=== PATIENT | female | born 1945 | race Caucasian/White ===

== ENCOUNTER 2019-10-16 15:13 | Outpatient (CLI) | payer MEDICARE, OTHER, SELFPAY ==
--- NOTE | ~2019-10-16 | CT_ITS ---
EXAMINATION: CT soft tissue neck wo con DATE: 10/16/2019 15:43 INDICATION: Cervicalgia TECHNIQUE: Computed tomography (CT) of the soft tissues of the neck was performed without intravenous contrast. Automated exposure control and iterative reconstruction technique were employed. The dose- length product was 463.71 mGy-cm. COMPARISON: None FINDINGS: Normal age-related changes in the visualized brain including mild volume loss and mild scattered germaine ventricular predominant white matter hypoattenuation consistent with chronic small vessel ischemic di sease. Changes of bilateral intraocular lens replacement. Mastoid air cells, middle ear cavities and paranasal sinuses are clear. There is a large periapical erosion between the roots of the second most posterior left maxillary molar where there appears to been a prior root canal. Bilateral parotid and submandibular glands are normal. Bilateral low-attenuation thyroid nodules the largest on the right measuring 1.5 cm in maximal diameter which was biopsied on 01/01/2011. Minimal atherosclerotic calcifi cations at the bilateral carotid bulbs. Relatively symmetric bilateral normal sized cervical lymph no faby. Tiny calcified nodule at the apical segment of the right lower lobe along with calcified mediast inal lymph nodes consistent with old granulomatous disease. There is suggestion of possible mild emph ysema in the upper lungs are evaluation of fine pulmonary parenchymal detail is limited by respirator y motion. Mild cervical dextrocurvature. There is likely developmental anterior and posterior fusion at C2-C3. 2 mm anterolisthesis C3 on C4. Vertebral body heights are normal. Mild disc height loss at C4-C5, C5- C6, T3-T4 and T4-T5. There are large anterior osteophytes and heterotopic ossification along the ante rior spine from C4 through T1 consistent with diffuse idiopathic skeletal hyperostosis (DISH). The f ollowing disc levels are specifically discussed: C3-C4: Disc is mildly bulging. There is mild bilateral uncovertebral joint osteoarthritis. There is m oderate right and severe left facet joint osteoarthritis. There is mild right and moderate left neura l foraminal stenosis. There is mild central canal stenosis. C4-C5: Large eccentric to the left partially calcified disc extrusion. There is mild right and modera te left uncovertebral joint osteoarthritis. There is moderate right and severe left facet joint osteo arthritis. There is old right and moderate left neural foraminal stenosis. There is moderate central canal stenosis. C5-C6: Disc is bulging. There is moderate right and mild left uncovertebral joint osteoarthritis. The re is mild right and moderate left facet joint osteoarthritis. There is mild to moderate left and mod erate right neural foraminal stenosis. There is mild central canal stenosis. C6-C7: Disc is bulging. There is mild right and moderate left uncovertebral joint osteoarthritis. The re is mild bilateral facet joint osteoarthritis. There is mild right and mild to moderate left neural foraminal stenosis. There is mild central canal stenosis. C7-T1: Disc is mildly bulging. There is mild bilateral uncovertebral joint osteoarthritis. There is m ild right and moderate left facet joint osteoarthritis. There is minimal bilateral neural foraminal s tenosis. There is no central canal stenosis. IMPRESSION: 1. Moderate cervical spondylosis with bulky anterior osteophytes and heterotopic ossification likely related to diffuse idiopathic skeletal hyperostosis (DISH). 2. Multinodular goiter. Reviewed, dictated and finalized at location A. R FULFILLMENT SPECIALIST IMPRESSION: 1. Moderate cervical spondylosis with bulky anterior osteophytes and heterotopi c ossification likely related to diffuse idiopathic skeletal hyperostosis (DI
== END 2019-10-16 15:14 | disposition home or self-care (01) ==
DX: E04.2 Nontoxic multinodular goiter (principal); M47.892 Other spondylosis, cervical region
CPT/HCPCS: 70490

== ENCOUNTER 2021-05-20 21:07 | Emergency (ER) | payer MEDICARE, OTHER, SELFPAY ==
[2021-05-20] VITALS (12 sets, daily range): BP systolic 71–90; BP diastolic 44–59; PULSE 95–118; RESP 15–24; TEMP 36.9; O2SAT 95–100
--- NOTE | ~2021-05-20 | CT_ITS ---
EXAMINATION: CT abdomen pelvis wo con DATE: 05/20/2021 23:11 INDICATION: Epigastric pain TECHNIQUE: Computed tomography (CT) of the abdomen and pelvis was performed without intravenous contr ast. The dose-length product was 1039.83 mGy-cm. Automated exposure control and iterative reconstruct ion technique were employed. COMPARISON: No prior studies for comparison. FINDINGS: Bibasilar dependent atelectasis. There is emphysema. Heart size normal. Small pericardial e ffusion. No significant pleural effusion. There is a large heterogeneous mass in the left hepatic lobe measuring 9.3 x 8.5 cm. There is biliary dilatation. There is a 9 mm dense focus at the confluence of the biliary tree with associated dilate d bile ducts. Common duct measures 2.3 cm. Gallbladder not definitely visualized. There is splenomega ly. There is thickening of the adrenal glands without discrete mass. There is fatty atrophy of the pa ncreas. There are low-density lesions in the right kidney measuring up to 2 cm, compatible with cysts . Nonobstructive bowel gas pattern. Small amount of gas in the bladder lumen, likely from recent inst rumentation. No lymphadenopathy. No significant vascular abnormality. Moderate degenerative changes o f the hips. There is multilevel spine ectomy changes of the upper lumbar spine. Advanced lumbar spond ylosis. IMPRESSION: 1. Large left hepatic lobe mass, suspicious for malignancy. Recommend further evaluation with contras t-enhanced CT scan. Hyperdense focus in the bile ducts with biliary dilatation, suspicious for stone. 2: Splenomegaly. Reviewed, dictated and finalized at location A. IMPRESSION: 1. Large left hepatic lobe mass, suspicious for malignancy. Recommend further e valuation with contrast-enhanced CT scan. Hyperdense focus in the bile ducts wi th biliary dilatation, suspicious for stone. 2: Splenomegaly.
--- NOTE | ~2021-05-20 | XR_ITS ---
XR chest 2V 05/20/2021 21:39 Indication: Weakness. Confusion. Procedure: AP and lateral views of the chest Comparison: 05/08/2022 Findings: Heart size normal. No focal air space disease, pulmonary edema, pleural effusion or suspect ed pneumothorax. There is mild osteoarthritis of the shoulders. Impression: 1: No acute cardiopulmonary disease. Reviewed, dictated and finalized at location A. Impression: 1: No acute cardiopulmonary disease.
--- NOTE | 2021-05-20 21:10 | ECG_ITS ---
Measurements Intervals [place] Rate: 120 P: GA: 0 QRS: 30 QRSD: 92 T: 37 QT: 304 QTc: 431 Interpretive Statements ATRIAL FIBRILLATION WITH RAPID VENTRICULAR RESPONSE DELAYED PRECORDIAL R/S TRANSITION BASELINE ARTIFACT- I, III, AVL, V4-V6 ABNORMAL ECG Electronically Signed On 05-22-2021 15:48:01 CDT by Viet Gasca D.O.
[2021-05-20] MEDS: SODIUM CHLORIDE 0.9% IV 2,000 ML 999 ML (21:46)
[2021-05-20 22:12] LABS: Basophils Absolute Auto 0.1 K/mm3 (0.0-0.1); Basophils Percent Auto 0.2 % (0.2-1.2); Eosinophils Absolute Auto 0.3 K/mm3 (0-0.3); Eosinophils Percent Auto 1.3 % (0-4.4); Hematocrit 23.1 % (37.0-47.0); Hemoglobin 7.6 g/dL (12.0-15.0); Immature Granulocyte Absolute 0.24 K/mm3 (0.00-0.031); Immature Granulocyte Percent A 1.1 % (0-0.5); Lymphocytes Absolute Auto 0.63 K/mm3 (0.9-3.2); Lymphocytes Percent Auto 2.8 % (18.3-44.2); Mean Corpuscular HGB Conc 32.9 g/dl (32-36); Mean Corpuscular Hemoglobin 30.3 pg (26-34); Mean Platelet Volume 10.4 fl (7.4-10.4); Monocytes Absolute Auto 0.9 K/mm3 (0.1-0.6); Monocytes Percent Auto 4.1 % (2.6-8.5); Neutrophils Absolute Auto 20.1 K/mm3 (1.3-6.7); Neutrophils Percent Auto 90.5 % (45.5-73.1); Platelet Count Result 244 k/mm3 (150-375); Red Blood Count 2.51 M/mm3 (4.2-5.4); Red Cell Distribution Width 14.6 % (11.5-14.5); White Blood Count 22.2 K/mm3 (4.5-10.0)
[2021-05-20 22:19] LABS: Add Urine Microscopic? YES; Amorphous Sediment Urine Few; Appearance Urine Cloudy (Clear); Bacteria Urine Trace /hpf; Bilirubin Urine Negative (Negative); Blood Urine 3+ (Negative); Color Urine Amber (Yellow); Glucose Urine UA Negative (Negative); Ketones Urine Negative (Negative); Leukocyte Esterase Ur 1+ LEU/UL (Negative); Mucus Urine Moderate /lpf; Nitrate Urine Negative (Negative); Protein Urine 2+ mg/dL (Negative); Specific Grav Ur 1.011 (1.001-1.035); Squamous Epithelial Cell Urine Moderate /hpf (Few); WBC Urine 51-75 /hpf
[2021-05-20 22:22] LABS: INR 1.3; Ovalocytes 1+ (NORMAL); Platelet Estimate Adequate (Adequate); Prothrombin Time 16.3 Seconds (11.1-14.7)
[2021-05-20 22:23] LABS: Partial Thromboplastin Time 34.3 SECONDS (22.3-36.8)
[2021-05-20 22:55] LABS: Alanine Aminotransferase 39 U/L (4-35); Albumin Level 2.6 g/dL (3.5-5.1); Alkaline Phosphatase 280 U/L (38-126); Anion Gap 13 mmol/L (8-16); Aspartate Amino Transferase 83 U/L (14-36); Bilirubin,Total 3.2 mg/dL (0.2-1.3); Blood Urea Nitrogen 31 mg/dL (7-17); Calcium 7.6 mg/dL (8.4-10.2); Carbon Dioxide 20 mmol/L (22-30); Chloride 101 mmol/L (98-107); Estimated CRCL calculation 21 ml/min; Estimated Glomerular Filt Rate 22; Glucose 127 mg/dL (65-110); Potassium 2.6 mmol/L (3.4-5.0); Sodium 134 mmol/L (137-145)
[2021-05-20] MEDS: SODIUM CHLORIDE 0.9% IV 1,000 ML 999 ML IV CONT (22:55)
[2021-05-20 23:00] LABS: CRP 19.4 mg/dL (<1.0)
--- NOTE | 2021-05-20 23:19 | ED.AMS ---
HPI - Altered Mental Status General Chief Complaint: Altered Mental Status Stated Complaint: weakness/ alert to voice Time Seen by Provider: 05/20/21 21:21 History of Present Illness HPI narrative: Patient is 75-year-old female who presents ER with altered mental status. According to family patient is had poor oral intake over the last 2 to 3 days. She has become increasingly more weak and fatigued and is now completely altered. She is unsure about the events of today. Son reports she ate some chicken noodle soup previously. Patient not been complaining of any abdominal pain. She does have some new appearance of jaundice. Of note patient is anticoagulated on Eliquis for history of atrial fibrillation. Related Data Home Medications Medication Instructions Recorded Confirmed amlodipine-benazepril 1 cap PO DAILY 05/20/21 05/20/21 apixaban [Eliquis] 5 mg PO DAILY 05/20/21 05/20/21 cetirizine 10 mg PO DAILY 05/20/21 05/20/21 dorzolamide-timolol 05/20/21 gabapentin 300 mg PO DAILY 05/20/21 05/20/21 ibandronate mg PO 05/20/21 metoprolol tartrate 05/20/21 pantoprazole PO 05/20/21 umeclidinium-vilanterol [Anoro INHALATION 05/20/21 Ellipta] Allergies Allergy/AdvReac Type Severity Reaction Status Date / Time valdecoxib Allergy Mild Unknown Verified 05/20/21 21:58 latex Allergy Unknown Verified 05/20/21 21:58 Review of Systems Review of Systems: ROS unobtainable: Yes unobtainable due to mental status PMFSH Past Medical History Medical History (Updated 05/21/21 @ 06:32 by Balta Robertson MD) Atrial fibrillation COPD (chronic obstructive pulmonary disease) GERD (gastroesophageal reflux disease) Hypertension Family History Family History Father Asthma Diabetes mellitus Hypertension Mother Hypertension Heart disease Social History Social History Smoking status: Never smoker Alcohol intake: never Substance use: never Exam Narrative: GENERAL: Ill-appearing, well-nourished, and in no acute distress. HEAD: Normocephalic, atraumatic. EYES: PERRL and EOMI. Scleral icterus noted. ENT: Dry mucous membranes. CHEST: Clear to auscultation. No respiratory distress. HEART: Irregular regular rate and rhythm that is tachycardic. Normal peripheral pulses. ABDOMEN: Soft, epigastric and RUQ tenderness with guarding, normal active bowel sounds. EXTREMITIES: Normal range of motion. No edema. SKIN: Warm, dry, no rash, jaundice. NEURO: Alert and oriented x1. PSYCH: Normal mood and affect. Course Course Emergency Course: Discussed case with general surgery on-call. Recommend transfer to tertiary care center with hepatobiliary. I discussed the case with Dr. Carvajal who is the hospitalist at [facility]. She is excepted the patient for care. Patient's blood pressure is stabilized after 3 L of IV fluid. Patient has better color to her and was responding well however still altered. She has received Zosyn for concern of cholecystitis. Her and her son been made aware of the liver mass. Patient will also receive 1 unit of blood given her low hemoglobin and likely delusional effect the fluids a pad on her. Furthermore patient has received IV potassium. We are awaiting a bed at the facility. Vital Signs Vital signs: Vital Signs Temperature 98.5 F 05/20/21 21:08 Pulse Rate 118 H 05/20/21 21:08 Respiratory Rate 20 05/20/21 21:08 Blood Pressure 71/44 L 05/20/21 21:08 Pulse Oximetry 99 05/20/21 21:08 Temperature 98.6 F 05/21/21 05:25 Pulse Rate 92 05/21/21 05:25 Respiratory Rate 19 05/21/21 05:25 Blood Pressure 100/72 05/21/21 05:25 Pulse Oximetry 97 05/21/21 05:25 MDM - Altered Mental Status Lab Data Result diagrams: 05/20/21 22:05 05/20/21 22:05 Labs: Lab Results 05/20/21 05/20/21 05/20/21 Range/Units 22:00 22:00 22:05 WBC
--- NOTE | 2021-05-20 23:23 | PC.NURSE ---
Report received from ALEXA Duarte. Assumed care of patient at this time.
[2021-05-20 23:38] LABS: Lipase 18 U/L (23-300)
[2021-05-21] VITALS (41 sets, daily range): BP systolic 92–128; BP diastolic 54–89; PULSE 87–107; RESP 14–47; TEMP 36.4–37; O2SAT 95–100
--- NOTE | 2021-05-21 01:25 | PC.NURSE ---
[id number] Karyna from [facility] access line calls to get triage info on patient and give her phone number to call when the covid test comes back. Her number is [phone].
[2021-05-21 01:37] LABS: EDCOVIDSCREEN Negative (Negative)
--- NOTE | 2021-05-21 01:45 | PC.NURSE ---
Contacted [facility] and spoke with Peg to inform her of the patient's negative covid swab.
[2021-05-21] MEDS: SODIUM CHLORIDE 0.9% IV 250 ML 30 ML IV CONT (04:06)
[2021-05-21] MEDS: TUBING, BLOOD PLUM PUMP TUBING 1 EACH XX (04:06)
--- NOTE | 2021-05-21 04:46 | PC.NURSE ---
Patient tolerating blood transfusion. Patient son provided with a recliner. Patient denies any complaints. Patient resting comfortably on stretcher, VSS.
[2021-05-21] MEDS: KCL 20 MEQ/D5/0.45% SOD CHL 1,000 ML 125 ML IV CONT ×2 (06:56→15:26)
[2021-05-21] MEDS: lisinopriL 20 MG TABLET 40 MG PO (13:40)
[2021-05-21] MEDS: amLODIPine BESYLATE 5 MG TABLET 10 MG PO (13:41)
[2021-05-21] MEDS: METOPROLOL SUCCINATE EXT REL 25 MG TABCR PO (13:42)
[2021-05-21] MEDS: GABAPENTIN 300 MG CAPSULE PO (13:42)
[2021-05-21] MEDS: LORATADINE 10 MG TABLET PO (13:43)
[2021-05-21] MEDS: PANTOPRAZOLE SOD SESQUIHYDRATE 20 MG TAB PO (13:43)
[2021-05-21] MEDS: APIXABAN 5 MG TABLET PO (15:00)
== END 2021-05-21 18:20 | disposition short-term general hospital (02) ==
PROVIDERS: Emergency Provider Emergency Medicine
DX: N17.9 Acute kidney failure, unspecified (principal); K81.0 Acute cholecystitis; R16.0 Hepatomegaly, not elsewhere classified; G93.41 Metabolic encephalopathy; I48.91 Unspecified atrial fibrillation; J44.9 Chronic obstructive pulmonary disease, unspecified; I10 Essential (primary) hypertension; Z20.822 Contact with and (suspected) exposure to COVID-19; K21.9 Gastro-esophageal reflux disease without esophagitis; Z79.01 Long term (current) use of anticoagulants
CPT/HCPCS: 36415; 36430; 71046; 74176; 80053; 81001; 83605; 83690; 85025; 85610; 85730; 86140; 86850; 86900; 86901; 86920; 87040; 87077; 87086; 87088; 87186; 87426; 93005; 96361; 96365; 96366; 96367; 96368; 99291; A9270; C9803; J2543; J3480; J7030; J7050; P9016

== ENCOUNTER 2021-05-29 12:03 | Outpatient (NON) | payer MEDICARE, OTHER, SELFPAY ==
[2021-05-29 12:22] LABS: Hematocrit 31.5 % (37.0-47.0); Hemoglobin 10.1 g/dL (12.0-15.0); Mean Corpuscular HGB Conc 32.1 g/dl (32-36); Mean Corpuscular Hemoglobin 29.7 pg (26-34); Mean Corpuscular Volume 92.6 fl (80-100); Platelet Count Result 365 k/mm3 (150-375); Red Cell Distribution Width 15.9 % (11.5-14.5); White Blood Count 20.8 K/mm3 (4.5-10.0)
== END 2021-05-29 12:04 | disposition home or self-care (01) ==
DX: K75.0 Abscess of liver (principal)
CPT/HCPCS: 36415; 85027

== ENCOUNTER 2021-06-02 11:05 | Outpatient (NON) | payer MEDICARE, OTHER, SELFPAY ==
[2021-06-02 11:45] LABS: Hemoglobin 9.3 g/dL (12.0-15.0); Mean Corpuscular Hemoglobin 29.7 pg (26-34); Mean Corpuscular Volume 95.8 fl (80-100); Mean Platelet Volume 10.7 fl (7.4-10.4); Platelet Count Result 309 k/mm3 (150-375); Red Blood Count 3.13 M/mm3 (4.2-5.4); Red Cell Distribution Width 16.2 % (11.5-14.5); White Blood Count 8.7 K/mm3 (4.5-10.0)
[2021-06-02 12:13] LABS: Anion Gap 7 mmol/L (8-16); Blood Urea Nitrogen 7 mg/dL (7-17); Calcium 7.6 mg/dL (8.4-10.2); Carbon Dioxide 27 mmol/L (22-30); Chloride 103 mmol/L (98-107); Estimated Glomerular Filt Rate > 60; Glucose 108 mg/dL (65-110); Potassium 3.7 mmol/L (3.4-5.0); Sodium 137 mmol/L (137-145)
== END 2021-06-02 11:06 | disposition home or self-care (01) ==
DX: K75.0 Abscess of liver (principal)
CPT/HCPCS: 36415; 80048; 85027

== ENCOUNTER 2021-06-14 11:06 | Outpatient (NON) | payer MEDICARE, OTHER, SELFPAY ==
[2021-06-14 12:19] LABS: Hematocrit 32.6 % (37.0-47.0); Hemoglobin 10.5 g/dL (12.0-15.0); Mean Corpuscular HGB Conc 32.2 g/dl (32-36); Mean Corpuscular Hemoglobin 30.2 pg (26-34); Mean Corpuscular Volume 93.7 fl (80-100); Mean Platelet Volume 10.6 fl (7.4-10.4); Platelet Count Result 263 k/mm3 (150-375); Red Blood Count 3.48 M/mm3 (4.2-5.4); Red Cell Distribution Width 16.7 % (11.5-14.5)
[2021-06-14 12:26] LABS: Alanine Aminotransferase 11 U/L (4-35); Albumin Level 3.5 g/dL (3.5-5.1); Alkaline Phosphatase 79 U/L (38-126); Anion Gap 8 mmol/L (8-16); Aspartate Amino Transferase 27 U/L (14-36); Bilirubin,Total 0.9 mg/dL (0.2-1.3); Blood Urea Nitrogen 10 mg/dL (7-17); Carbon Dioxide 26 mmol/L (22-30); Chloride 102 mmol/L (98-107); Estimated Glomerular Filt Rate > 60; Glucose 97 mg/dL (65-110); Potassium 3.9 mmol/L (3.4-5.0); Sodium 136 mmol/L (137-145)
[2021-06-14 13:41] LABS: Basophils Absolute Auto 0.1 K/mm3 (0.0-0.1); Basophils Percent Auto 1.6 % (0.2-1.2); Eosinophils Absolute Auto 0.3 K/mm3 (0-0.3); Eosinophils Percent Auto 5.1 % (0-4.4); Immature Granulocyte Absolute 0.02 K/mm3 (0.00-0.031); Immature Granulocyte Percent A 0.4 % (0-0.5); Lymphocytes Absolute Auto 2.15 K/mm3 (0.9-3.2); Lymphocytes Percent Auto 43.5 % (18.3-44.2); Monocytes Absolute Auto 0.5 K/mm3 (0.1-0.6); Monocytes Percent Auto 9.9 % (2.6-8.5); Neutrophils Percent Auto 39.5 % (45.5-73.1); Nucleated Red Blood Cells Absolute Auto 0.1 K/mm3 (0.0-0.012)
== END 2021-06-14 11:07 | disposition home or self-care (01) ==
DX: K57.00 Diverticulitis of small intestine with perforation and abscess without bleeding (principal)
CPT/HCPCS: 36415; 80053; 85025; 85027

== ENCOUNTER 2021-06-21 10:47 | Outpatient (NON) | payer MEDICARE, OTHER, SELFPAY ==
[2021-06-21 12:41] LABS: Hematocrit 34.1 % (37.0-47.0); Hemoglobin 11.1 g/dL (12.0-15.0); Mean Corpuscular HGB Conc 32.6 g/dl (32-36); Mean Corpuscular Hemoglobin 30.9 pg (26-34); Mean Platelet Volume 10.5 fl (7.4-10.4); Platelet Count Result 282 k/mm3 (150-375); Red Blood Count 3.59 M/mm3 (4.2-5.4); Red Cell Distribution Width 16.4 % (11.5-14.5); White Blood Count 4.7 K/mm3 (4.5-10.0)
[2021-06-21 12:59] LABS: Alanine Aminotransferase 11 U/L (4-35); Albumin Level 3.6 g/dL (3.5-5.1); Alkaline Phosphatase 60 U/L (38-126); Anion Gap 4 mmol/L (8-16); Aspartate Amino Transferase 24 U/L (14-36); Bilirubin,Total 0.9 mg/dL (0.2-1.3); Blood Urea Nitrogen 10 mg/dL (7-17); Calcium 8.9 mg/dL (8.4-10.2); Carbon Dioxide 27 mmol/L (22-30); Chloride 106 mmol/L (98-107); Estimated Glomerular Filt Rate > 60; Glucose 101 mg/dL (65-110); Potassium 3.8 mmol/L (3.4-5.0); Sodium 137 mmol/L (137-145)
[2021-06-21 17:24] LABS: Basophils Absolute Auto 0.1 K/mm3 (0.0-0.1); Basophils Percent Auto 1.5 % (0.2-1.2); Eosinophils Absolute Auto 0.2 K/mm3 (0-0.3); Eosinophils Percent Auto 3.9 % (0-4.4); Immature Granulocyte Absolute 0.01 K/mm3 (0.00-0.031); Immature Granulocyte Percent A 0.2 % (0-0.5); Lymphocytes Absolute Auto 2.09 K/mm3 (0.9-3.2); Lymphocytes Percent Auto 45.3 % (18.3-44.2); Monocytes Absolute Auto 0.5 K/mm3 (0.1-0.6); Monocytes Percent Auto 10.8 % (2.6-8.5); Neutrophils Absolute Auto 1.8 K/mm3 (1.3-6.7); Neutrophils Percent Auto 38.3 % (45.5-73.1); Nucleated Red Blood Cells Perc 0.9 % (0.0-0.2)
== END 2021-06-21 10:48 | disposition home or self-care (01) ==
DX: K75.0 Abscess of liver (principal)
CPT/HCPCS: 36415; 80053; 85025; 85027

== ENCOUNTER 2021-06-28 11:19 | Outpatient (NON) | payer MEDICARE, OTHER, SELFPAY ==
[2021-06-28 12:10] LABS: Alanine Aminotransferase 14 U/L (4-35); Albumin Level 3.7 g/dL (3.5-5.1); Alkaline Phosphatase 53 U/L (38-126); Anion Gap 11 mmol/L (8-16); Aspartate Amino Transferase 23 U/L (14-36); Basophils Percent Auto 0.9 % (0.2-1.2); Bilirubin,Total 0.7 mg/dL (0.2-1.3); Blood Urea Nitrogen 9 mg/dL (7-17); Calcium 8.9 mg/dL (8.4-10.2); Carbon Dioxide 22 mmol/L (22-30); Chloride 104 mmol/L (98-107); Eosinophils Absolute Auto 0.2 K/mm3 (0-0.3); Eosinophils Percent Auto 4.9 % (0-4.4); Estimated Glomerular Filt Rate > 60; Glucose 142 mg/dL (65-110); Hematocrit 34.6 % (37.0-47.0); Hemoglobin 11.5 g/dL (12.0-15.0); Lymphocytes Absolute Auto 1.57 K/mm3 (0.9-3.2); Lymphocytes Percent Auto 35.1 % (18.3-44.2); Mean Corpuscular HGB Conc 33.2 g/dl (32-36); Mean Corpuscular Hemoglobin 30.5 pg (26-34); Mean Corpuscular Volume 91.8 fl (80-100); Mean Platelet Volume 10.6 fl (7.4-10.4); Monocytes Absolute Auto 0.4 K/mm3 (0.1-0.6); Monocytes Percent Auto 9.8 % (2.6-8.5); Neutrophils Absolute Auto 2.2 K/mm3 (1.3-6.7); Neutrophils Percent Auto 49.3 % (45.5-73.1); Nucleated Red Blood Cells Perc 0.7 % (0.0-0.2); Platelet Count Result 317 k/mm3 (150-375); Red Blood Count 3.77 M/mm3 (4.2-5.4); Red Cell Distribution Width 15.9 % (11.5-14.5); Sodium 137 mmol/L (137-145); White Blood Count 4.5 K/mm3 (4.5-10.0)
== END 2021-06-28 11:20 | disposition home or self-care (01) ==
LOC: ANHLAB 11:24
DX: K75.0 Abscess of liver (principal)
CPT/HCPCS: 36415; 80053; 85025

== ENCOUNTER 2024-03-11 13:14 | Emergency (ER) | payer MEDICARE, OTHER, SELFPAY ==
--- NOTE | ~2024-03-11 | CT_ITS ---
Procedure: CT humerus RT wo con Ordering provider: Roberto Lopez MD History: . diplaced fracture . Comparison: None. Technique: Thin slice axial CT of the No IV contrast was given. Sagittal and coronal reformatted imag es were also obtained and reviewed. Radiation reduction technique utilized.The dose-length product wa s 776.8 mGy-cm. Findings: BONES: Impacted fracture of the anatomical neck of the right humerus. Fracture of the humeral head is also noted with extension of the fracture to the glenoid cavity. JOINT SPACES: joint effusion. SOFT TISSUES: Normal IMPRESSION: Impacted comminuted fracture of the proximal metaphysis of the right humerus with fracture in the hum eral head extending to the joint space. Joint effusion. Reviewed, dictated and finalized at location A. IMPRESSION: Impacted comminuted fracture of the proximal metaphysis of the right humerus wi th fracture in the humeral head extending to the joint space. Joint effusion.
--- NOTE | ~2024-03-11 | CT_ITS ---
CT brain wo con Ordering provider: Gladys King PA-C History: 78 years Female with . head injury . Comparison: None. Technique: CT of the head without contrast. Radiation reduction technique utilized. DLP is 605.33 9mGy-cm. FINDINGS: BRAIN PARENCHYMA AND CSF SPACES: Mild leukoaraiosis and diffuse cortical atrophy. Mild atheromatous d isease. No midline shift, mass effect or hemorrhage. The brain parenchyma and CSF spaces are otherwi se normal. VISUALIZED PARANASAL SINUSES: Well aerated. MASTOIDS: Well aerated. BONES: The bones appear intact. SOFT TISSUES: Visualized nasopharynx is normal. Superficial soft tissues are normal. IMPRESSION: No acute intracranial findings. Reviewed, dictated and finalized at location A.
--- NOTE | ~2024-03-11 | CT_ITS ---
CT facial & cervical spine wo Ordering provider: Gladys King History: . head injury . Comparison: None. Technique: Thin slice axial CT of the facial bones was performed without contrast. Coronal and sagit carlos eduardo reformatted images were also obtained. . Automated exposure control and iterative reconstruction technique were employed. The dose-length product was 605.33 mGy-cm. FINDINGS: PARANASAL SINUSES: Well aerated. BONES: No facial fracture including no nasal bone fracture. Dental care is seen in the left upper jaw . Right nasal septal deviation. ORBITS AND SUPERFICIAL SOFT TISSUES: The optic globes and orbits are normal. The superficial soft tis sues are normal. VISUALIZED MASTOIDS: Well aerated. LIMITED VISUALIZED BRAIN PARENCHYMA: Normal. IMPRESSION: No facial fracture. CT facial & cervical spine wo Ordering provider: Gladys King History: . head injury . Comparison: None. Technique: CT of the cervical spine was performed without contrast. Sagittal and coronal reformatted images were also obtained and reviewed. Automated exposure control and iterative reconstruction cher hnique were employed. The dose-length product was 605.33 mGy-cm. FINDINGS: VERTEBRAE: Fusion of C3 with C2 is noted. No subluxation or acute fracture. The occipital condyles ar e intact. DISH changes are seen anteriorly. DISC SPACES: Narrowing of the disc C5-C6 and C4-C5. Multilevel facet joint disease. Multilevel interv ertebral foraminal narrowing. PARASPINOUS SOFT TISSUES: Normal. IMPRESSION: No acute osseous abnormality cervical spine. Reviewed, dictated and finalized at location A. IMPRESSION: No facial fracture. CT facial & cervical spine wo Ordering provider: Gladys King History: . head injury . Comparison: None. Technique: CT of the cervical spine was performed without contrast. Sagittal a nd coronal reformatted images were also obtained and reviewed. Automated expos ure control and iterative reconstruction technique were employed. The dose-terrell th product was 605.33 mGy-cm. FINDINGS: VERTEBRAE: Fusion of C3 with C2 is noted. No subluxation or acute fracture. The occipital condyles are intact. DISH changes are seen anteriorly. DISC SPACES: Narrowing of the disc C5-C6 and C4-C5. Multilevel facet joint dise ase. Multilevel intervertebral foraminal narrowing. PARASPINOUS SOFT TISSUES: Normal.
--- NOTE | ~2024-03-11 | XR_ITS ---
XR shoulder RT min 2V, XR clavicle RT 03/11/2024 14:03 (accession [id number]), 03/11/2024 14:04 (accession [id number]) Indication: Right shoulder pain after fall Procedure: 3 views right shoulder and 2 views right clavicle Comparison: No prior studies for comparison. Findings: There is a displaced, angulated right humeral neck fracture. The acromioclavicular joint is intact. Cannot exclude fracture of the inferior margin of the glenoid process. No definite clavicula r fracture is seen. Impression: 1: Displaced, angulated comminuted fracture of the right humeral neck. 2: Possible fracture inferior margin of the glenoid process/scapula. Consider correlation with CT. Reviewed, dictated and finalized at location B. Impression: 1: Displaced, angulated comminuted fracture of the right humeral neck. 2: Possible fracture inferior margin of the glenoid process/scapula. Consider c orrelation with CT. Impression: 1: Displaced, angulated comminuted fracture of the right humeral neck. 2: Possible fracture inferior margin of the glenoid process/scapula. Consider c orrelation with CT.
[2024-03-11 13:20] VITALS: BP 156/94; PULSE 97; RESP 16; TEMP 36.4; O2SAT 100
--- NOTE | 2024-03-11 13:24 | ED.UPPEXIN ---
HPI - Extremity Injury (Upper) General Chief Complaint: Extremity Injury, Upper Stated Complaint: right shoulder injury Time Seen by Provider: 03/11/24 13:24 Focused HPI: This is a 78-year-old female that presents to the emergency department after a mechanical fall today with right shoulder injury. Reports landing on the right shoulder. She also hit her face. Patient is on anticoagulation. GENERAL: Well-appearing, well-nourished, and in no acute distress. HEAD: Normocephalic, atraumatic. CHEST: Clear to auscultation. ?No respiratory distress. HEART: Regular rate and rhythm.? NEURO: ?Alert and oriented x3. Patient screened in triage and initial orders placed.? ?Additional care and disposition to be based upon?diagnostic testing and treatment. Related Data Home Medications Medication Instructions Recorded Confirmed amlodipine 10 mg-benazepril 40 mg 1 cap PO DAILY 05/20/21 03/16/24 capsule apixaban 5 mg tablet (Eliquis) 5 mg PO DAILY 05/20/21 03/16/24 cetirizine 10 mg tablet 10 mg PO DAILY 05/20/21 03/16/24 dorzolamide 22.3 mg-timolol 6.8 05/20/21 03/16/24 mg/mL eye drops gabapentin 300 mg capsule 300 mg PO DAILY 05/20/21 03/16/24 ibandronate 150 mg tablet mg PO 05/20/21 03/16/24 metoprolol tartrate 25 mg tablet 05/20/21 03/16/24 pantoprazole 20 mg tablet,delayed PO 05/20/21 03/16/24 release umeclidinium 62.5 mcg-vilanterol inhalation 05/20/21 03/16/24 25 mcg/actuation powdr for inhalation (Anoro Ellipta) Allergies Allergy/AdvReac Type Severity Reaction Status Date / Time valdecoxib Allergy Mild Unknown Verified 03/16/24 14:50 latex Allergy Unknown Verified 03/16/24 14:50 [facility] Past Medical History Medical History Atrial fibrillation COPD (chronic obstructive pulmonary disease) GERD (gastroesophageal reflux disease) Hypertension Family History Family History Father Asthma Diabetes mellitus Hypertension Mother Hypertension Heart disease Social History Social History (Updated 03/16/24 @ 15:20 by Lakia Sotelo [facility]) Smoking status: Never smoker Alcohol intake: never Substance use: never Do You Feel Safe in your Home?: Yes Lack of Transportation: No Lack of Food: Never True Current Housing: I Have Housing Concerned About Future Housing: No Difficulty Paying Gas/Electric Bills: No Difficulty Paying for Meds: No Currently Unemployed: No Education: Bachelor's Degree Difficulty w/ Childcare or Family Care: No Course Vital Signs Vital signs: Vital Signs Temperature 97.6 F 03/11/24 13:20 Pulse Rate 97 03/11/24 13:20 Respiratory Rate 16 03/11/24 13:20 Blood Pressure 156/94 H 03/11/24 13:20 Pulse Oximetry 100 03/11/24 13:20 Oxygen Delivery Room Air 03/11/24 13:20 Temperature 97.9 F 03/11/24 17:39 Pulse Rate 78 03/11/24 17:39 Respiratory Rate 16 03/11/24 17:39 Blood Pressure 146/88 H 03/11/24 17:39 Pulse Oximetry 100 03/11/24 17:39 Oxygen Delivery Room Air 03/11/24 13:20 MDM - Extremity Injury (Upper) Imaging Data Radiologist's impression: ITS Impressions Head CT 03/11/24 13:54 IMPRESSION: No acute intracranial findings. Clavicle X-Ray 03/11/24 14:07 Impression: 1: Displaced, angulated comminuted fracture of the right humeral neck. 2: Possible fracture inferior margin of the glenoid process/scapula. Consider correlation with CT. Shoulder X-Ray 03/11/24 14:07 Impression: 1: Displaced, angulated comminuted fracture of the right humeral neck. 2: Possible fracture inferior margin of the glenoid process/scapula. Consider correlation with CT. Head/Cervical Spine/Facial Bones CT 03/11/24 14:23 IMPRESSION: No facial fracture. CT facial & cervical spine wo Ordering provider: Gladys King History: . head injury
[2024-03-11] MEDS: MORPHINE SULFATE (*CRX) 4 MG/ML INJ IM (15:55)
--- NOTE | 2024-03-11 17:09 | ED.UPPEXIN ---
HPI - Extremity Injury (Upper) General Chief Complaint: Extremity Injury, Upper Stated Complaint: right shoulder injury Time Seen by Provider: 03/11/24 13:24 History of Present Illness HPI narrative: 78-year-old female with a past medical history including atrial fibrillation for which he takes Eliquis. She presents today after a ground level mechanical fall with head and facial trauma as well as injury to her right upper extremity. Patient states her pain is 0 at this time and only having pain in her shoulder when she moves it. No neurological complaints, no vision changes, headache, nausea, vomiting. 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 With otherwise normal state of health and states that she had the prodrome symptoms or syncope. Related Data Home Medications Medication Instructions Recorded Confirmed amlodipine 10 mg-benazepril 40 mg 1 cap PO DAILY 05/20/21 05/20/21 capsule apixaban 5 mg tablet (Eliquis) 5 mg PO DAILY 05/20/21 05/20/21 cetirizine 10 mg tablet 10 mg PO DAILY 05/20/21 05/20/21 dorzolamide 22.3 mg-timolol 6.8 05/20/21 mg/mL eye drops gabapentin 300 mg capsule 300 mg PO DAILY 05/20/21 05/20/21 ibandronate 150 mg tablet mg PO 05/20/21 metoprolol tartrate 25 mg tablet 05/20/21 pantoprazole 20 mg tablet,delayed PO 05/20/21 release umeclidinium 62.5 mcg-vilanterol inhalation 05/20/21 25 mcg/actuation powdr for inhalation (Anoro Ellipta) Allergies Allergy/AdvReac Type Severity Reaction Status Date / Time valdecoxib Allergy Mild Unknown Verified 05/20/21 21:58 latex Allergy Unknown Verified 05/20/21 21:58 Review of Systems Review of Systems: ROS as described above in the HPI. [facility] Past Medical History Medical History Atrial fibrillation COPD (chronic obstructive pulmonary disease) GERD (gastroesophageal reflux disease) Hypertension Family History Family History Father Asthma Diabetes mellitus Hypertension Mother Hypertension Heart disease Social History Social History Smoking status: Never smoker Alcohol intake: never Substance use: never Exam Narrative: GENERAL: [Well-appearing, well-nourished, and in no acute distress.] HEAD: [Normocephalic, atraumatic.] EYES: [PERRLA and EOMI.] ENT: Nares clear, no rhinorrhea or epistaxis. Mucous membranes moist. NECK: Supple. CHEST: [Clear to auscultation. No respiratory distress.] HEART: [Regular rate and rhythm]. No murmur heard. [Normal peripheral pulses.] ABDOMEN: [Soft, nondistended], [nontender], [No rigidity or guarding] EXTREMITIES: Obvious deformity to the right upper extremity near the proximal humerus. Limited range of motion of the shoulder but full range of motion of the elbow, wrist. Full strength bilaterally marine diver strength and flexion extension of the elbow. Tenderness to palpation along the proximal humeral head on the right side. AC joint appears intact, clavicles appear intact without any step-offs deformities. No cervical spinal pain. SKIN: Warm, dry, no rash. NEURO: [No focal deficits]. Alert and oriented [x3.] PSYCH: [Normal mood and affect.] Course Vital Signs Vital signs: Vital Signs Temperature 36.4 C 03/11/24 13:20 Pulse Rate 97 03/11/24 13:20 Respiratory Rate 16 03/11/24 13:20 Blood Pressure 156/94 H 03/11/24 13:20 Pulse Oximetry 100 03/11/24 13:20 Oxygen Delivery Room Air 03/11/24 13:20 Temperature 36.6 C 03/11/24 17:39 Pulse Rate 78 03/11/24 17:39 Respiratory Rate 16 03/11/24 17:39 Blood Pressure 146/88 H 03/11/24 17:39 Pulse Oximetry 100 03/11/24 17:39 Oxygen Delivery Room Air 03/11/24 13:20 MDM - Extremity Injury (Upper) MDM [facility]
[2024-03-11 17:39] VITALS: BP 146/88; PULSE 78; RESP 16; TEMP 36.6; O2SAT 100
== END 2024-03-11 17:40 | disposition home or self-care (01) ==
PROVIDERS: Emergency Provider Student in an Organized Health Care Education/Training Program
DX: S42.291A Other displaced fracture of upper end of right humerus, initial encounter for closed fracture (principal); I48.91 Unspecified atrial fibrillation; I10 Essential (primary) hypertension; J44.9 Chronic obstructive pulmonary disease, unspecified; K21.9 Gastro-esophageal reflux disease without esophagitis; Z79.01 Long term (current) use of anticoagulants; Z79.899 Other long term (current) drug therapy; W19.XXXA Unspecified fall, initial encounter
CPT/HCPCS: 70450; 70486; 72125; 73000; 73030; 73200; 96372; 99284; A4565; J2270